=== PATIENT | female | born 1945 | race Caucasian/White ===

== ENCOUNTER 2018-12-31 11:56 | Emergency (ER) | payer OTHER ==
[~2018-12-31] VITALS: Ht 160 cm; Wt 57.2 kg
[2018-12-31 13:03] LABS: Basophils # (auto) 0 uL; Basophils % (auto) 0.3 % (0.0-2.0); Eosinophils # (auto) 0 uL; Eosinophils % (auto) 0.3 % (0.0-7.0); Hematocrit 42.9 % (36.0-46.0); Hemoglobin 14.3 g/dL (12.2-16.2); Lymphocytes # (auto) 1.1 uL; Lymphocytes % (auto) 13.5 % (10.0-50.0); Mean Corpuscular Hemoglobin 28.2 pg (28.0-32.0); Mean Corpuscular Hgb Conc. 33.4 g/dL (32.0-36.0); Mean Corpuscular Volume 84.4 fL (80.0-100.0); Monocytes # (auto) 0.4 uL; Monocytes % (auto) 4.4 % (0.0-12.0); Neutrophils # (auto) 6.7 uL; Neutrophils % (auto) 81.5 % (37.0-80.0); Nucleated Red Blood Cells % 0.1 %; Platelet Count (auto) 194 10^3/uL (140-450); Red Blood Cells 5.08 10^6/uL (4.0-5.20); White Blood Cell 8.2 10^3/uL (4.4-10.8)
[2018-12-31 13:28] LABS: Albumin 3.7 g/dL (3.4-5.0); Anion Gap 7 (5-15); Blood Urea Nitrogen 21 mg/dL (7-18); Calcium 8.9 mg/dL (8.5-10.1); Carbon Dioxide 24 mmol/L (21-32); Chloride 110 mmol/L (98-107); Glucose 103 mg/dL (74-106); Potassium 3.7 mmol/L (3.5-5.1); Sodium 141 mmol/L (136-145)
[2018-12-31 13:35] LABS: Alanine Aminotransferase 13 U/L (13-56); Alkaline Phosphatase 69 U/L (45-117); Aspartate Aminotransferase 15 U/L (15-37); BUN/Creatinine Ratio 25.6; Bilirubin, Total 0.6 mg/dL (0.2-1.0); GFR African American 87 mL/min; GFR Non-African American 72 mL/min; Total Protein 7.4 g/dL (6.4-8.2)
[2018-12-31] MEDS ORDERED: cloNIDine HCL 0.1 MG TAB PO ONE (16:15)
[2018-12-31 18:00] VITALS: BP 158/84
== END 2018-12-31 15:50 | disposition home or self-care (01) ==
LOC: ER 11:56
DX: I16.0 Hypertensive urgency (principal); K21.9 Gastro-esophageal reflux disease without esophagitis; Z90.710 Acquired absence of both cervix and uterus
CPT/HCPCS: 36415; 71046; 80053; 84484; 85025

== ENCOUNTER → 2019-01-08 | Outpatient (CLI) | payer OTHER ==
[2019-01-08 11:59] LABS: Basophils # (auto) 0.1 uL; Basophils % (auto) 0.8 % (0.0-2.0); Eosinophils # (auto) 0.1 uL; Eosinophils % (auto) 1.2 % (0.0-7.0); Hematocrit 41.6 % (36.0-46.0); Lymphocytes # (auto) 1.9 uL; Lymphocytes % (auto) 26.3 % (10.0-50.0); Mean Corpuscular Hemoglobin 28.3 pg (28.0-32.0); Mean Corpuscular Hgb Conc. 33.6 g/dL (32.0-36.0); Mean Corpuscular Volume 84.1 fL (80.0-100.0); Monocytes # (auto) 0.4 uL; Monocytes % (auto) 5.8 % (0.0-12.0); Neutrophils # (auto) 4.8 uL; Neutrophils % (auto) 65.9 % (37.0-80.0); Nucleated Red Blood Cells % 0.1 %; Platelet Count (auto) 205 10^3/uL (140-450); Red Blood Cells 4.95 10^6/uL (4.0-5.20); White Blood Cell 7.2 10^3/uL (4.4-10.8)
[2019-01-08 12:05] LABS: Urine Bacteria NONE SEEN /hpf (None Seen); Urine Blood Negative /uL (Negative); Urine Mucus FEW (None Seen); Urine Specific Gravity 1.016 (1.001-1.035); Urine WBC 2 /hpf (0 - 5)
[2019-01-08 12:34] LABS: Albumin 3.4 g/dL (3.4-5.0); Calcium 9.2 mg/dL (8.5-10.1); Potassium 4.1 mmol/L (3.5-5.1)
[2019-01-08 12:42] LABS: Bilirubin, Total 0.5 mg/dL (0.2-1.0); Folate (Folic Acid) 9.91 ng/mL (5.38-24); Total Protein 7.4 g/dL (6.4-8.2)
== END | disposition home or self-care (01) ==
LOC: LAB 11:17
PROVIDERS: ATTEND Nurse Practitioner
DX: E78.5 Hyperlipidemia, unspecified (principal); I10 Essential (primary) hypertension; K21.9 Gastro-esophageal reflux disease without esophagitis
CPT/HCPCS: 36415; 80053; 80061; 81001; 82306; 82607; 82746; 83036; 84443; 85025

== ENCOUNTER → 2019-01-22 | Outpatient (CLI) | payer OTHER | END | disposition home or self-care (01) | LOC: LAB 15:43 | PROVIDERS: ATTEND Internal Medicine | DX: R63.4 Abnormal weight loss (principal); I10 Essential (primary) hypertension; K21.9 Gastro-esophageal reflux disease without esophagitis | CPT/HCPCS: 82105; 82274; 82378; 86301; 86304 ==

== ENCOUNTER → 2019-01-30 | Outpatient (CLI) | payer OTHER ==
[2019-01-30 11:28] LABS: Calcium 9.2 mg/dL (8.5-10.1); Potassium 3.7 mmol/L (3.5-5.1)
[2019-01-30 11:35] LABS: Albumin 3.6 g/dL (3.4-5.0); BUN/Creatinine Ratio 22.1; Bilirubin, Total 0.5 mg/dL (0.2-1.0)
== END | disposition home or self-care (01) ==
LOC: LAB 09:17
PROVIDERS: ATTEND Internal Medicine
DX: I10 Essential (primary) hypertension (principal)
CPT/HCPCS: 36415; 80053

== ENCOUNTER → 2019-02-11 | Outpatient (CLI) | payer OTHER | END | disposition home or self-care (01) | LOC: Rad HDHVI 13:02 | PROVIDERS: ATTEND Internal Medicine Cardiovascular Disease | DX: I08.3 Combined rheumatic disorders of mitral, aortic and tricuspid valves (principal); R00.2 Palpitations; I10 Essential (primary) hypertension | CPT/HCPCS: 93306 ==

== ENCOUNTER → 2019-02-14 | Outpatient (CLI) | payer OTHER ==
[~2019-02-14] VITALS: Ht 160 cm; Wt 55.8 kg
== END | disposition home or self-care (01) ==
LOC: Rad HDHVI 13:02
PROVIDERS: ATTEND Internal Medicine Cardiovascular Disease
DX: I10 Essential (primary) hypertension (principal)
CPT/HCPCS: 78452; 93017; 96374; A9500

== ENCOUNTER → 2020-01-31 | Outpatient (CLI) | payer OTHER ==
[2020-01-31 11:45] LABS: Basophils # (auto) 0 10 ^3/uL (0-0.2); Basophils % (auto) 0.6 % (0.0-2.0); Eosinophils # (auto) 0.1 10 ^3/uL (0-0.8); Eosinophils % (auto) 1.7 % (0.0-7.0); Hematocrit 38.4 % (36.0-46.0); Hemoglobin 12.6 g/dL (12.2-16.2); Lymphocytes # (auto) 1.9 10 ^3/uL (0.4-5.4); Lymphocytes % (auto) 24.5 % (10.0-50.0); Mean Corpuscular Hemoglobin 28.1 pg (28.0-32.0); Mean Corpuscular Hgb Conc. 32.7 g/dL (32.0-36.0); Mean Corpuscular Volume 85.8 fL (80.0-100.0); Monocytes # (auto) 0.7 10 ^3/uL (0-1.3); Neutrophils # (auto) 4.8 10 ^3/uL (1.6-8.6); Neutrophils % (auto) 64.2 % (37.0-80.0); Nucleated Red Blood Cells % 0.1 %; Platelet Count (auto) 208 10^3/uL (140-450); Red Blood Cells 4.48 10^6/uL (4.0-5.20); Red Cell Distribution Width 14.2 % (11.8-14.3); White Blood Cell 7.6 10^3/uL (4.4-10.8)
[2020-01-31 12:26] LABS: Albumin 3.5 g/dL (3.4-5.0); Calcium 9.2 mg/dL (8.5-10.1); Potassium 3.6 mmol/L (3.5-5.1)
[2020-01-31 12:32] LABS: Bilirubin, Total 0.5 mg/dL (0.2-1.0); Total Protein 7.2 g/dL (6.4-8.2)
== END | disposition home or self-care (01) ==
LOC: LAB 11:26
PROVIDERS: ATTEND Internal Medicine
DX: I10 Essential (primary) hypertension (principal)
CPT/HCPCS: 36415; 80053; 80061; 83036; 85025

== ENCOUNTER 2020-03-03 16:16 | Inpatient (IN) | payer OTHER ==
[~2020-03-03] VITALS: Ht 160 cm; Wt 64.7 kg
[2020-03-03 17:00] VITALS: BP 171/88
--- NOTE | 2020-03-03 17:00 | NUR ---
Direct Admit Note GABRIELADELFO admitted to Telemetry/MS unit as a direct admit per MD order. Patient oriented to Rosa major RN, unit, room, bed, and unit policies regarding patient care and visiting hours. Patient weighed by bedscale and encouraged to call if they need something. All questions and concerns addressed, patient verbalized understanding. MD notified of patients arrival, awaiting inpatient orders.
[2020-03-03 17:23] VITALS: BP 171/88
[2020-03-03] MEDS ORDERED: HYDROcodone-ACET 5/325MG TAB PO PRN (17:45)
[2020-03-03] MEDS ORDERED: ACETAMINOPHEN 325 MG TAB PO PRN (17:45)
[2020-03-03] MEDS ORDERED: MORPHINE SULF INJ 2 MG/ML SYRINGE 1ML IV PRN ×2 (17:45)
[2020-03-03] MEDS ORDERED: NITROGLYCERIN 0.4 MG SL TAB SL PRN (17:45)
[2020-03-03] MEDS ORDERED: ONDANSETRON HCL 4 MG/2 ML VIAL IV PRN (17:45)
[2020-03-03] MEDS ORDERED: ALUM & MAG HYDROX-SIMETH LIQ(MAALOX) 30 ML PO PRN (17:45)
[2020-03-03] MEDS: SODIUM CHLORIDE 0.9% 1,000 ML IV SCH (17:53)
[2020-03-03] MEDS ORDERED: hydrALAZINE HCL 20 MG/ML VL IV PRN (18:00)
[2020-03-03] MEDS ORDERED: ENALAPRILAT 1.25 MG/ML-1ML VIAL IV PRN (18:00)
[2020-03-03] MEDS: METOPROLOL TARTRATE 1MG/1ML-5ML VIAL IV SCH ×2 (18:11→23:45)
[2020-03-03 19:46] LABS: Basophils # (auto) 0 10 ^3/uL (0-0.2); Basophils % (auto) 0.1 % (0.0-2.0); Eosinophils # (auto) 0 10 ^3/uL (0-0.8); Hematocrit 39.1 % (36.0-46.0); Hemoglobin 13.1 g/dL (12.2-16.2); Mean Corpuscular Hemoglobin 28.3 pg (28.0-32.0); Mean Corpuscular Hgb Conc. 33.4 g/dL (32.0-36.0); Mean Corpuscular Volume 84.7 fL (80.0-100.0); Monocytes # (auto) 0.6 10 ^3/uL (0-1.3); Monocytes % (auto) 4.3 % (0.0-12.0); Neutrophils % (auto) 88.6 % (37.0-80.0); Nucleated Red Blood Cells % 0.1 %; Platelet Count (auto) 242 10^3/uL (140-450); Red Blood Cells 4.61 10^6/uL (4.0-5.20); Red Cell Distribution Width 14.3 % (11.8-14.3); White Blood Cell 13.5 10^3/uL (4.4-10.8)
[2020-03-03 20:03] LABS: Albumin 3.9 g/dL (3.4-5.0); Calcium 10.5 mg/dL (8.5-10.1); Magnesium 2.4 mg/dL (1.6-2.6)
[2020-03-03 20:08] LABS: BUN/Creatinine Ratio 30.7; Bilirubin, Total 0.6 mg/dL (0.2-1.0); Total Protein 7.4 g/dL (6.4-8.2)
[2020-03-03 20:13] LABS: Potassium 2.8 mmol/L (3.5-5.1)
--- NOTE | 2020-03-03 20:18 | NUR ---
Critical potassium value of 2.8 received. Paged hospitalist. Awaiting call back.
--- NOTE | 2020-03-03 20:35 | NUR ---
Opening Shift Note Assumed care of patient, awake and alert. No S/S of distress/SOB, denied chest pain. Collected UA and sent to lab. Instructed on POC and to call for assist PRN, will continue to monitor for changes Q1hr and PRN.
[2020-03-03 20:39] LABS: INR 0.97 (0.9-1.15); Partial Thromboplastin Time 21.6 sec (23.0-31.2)
[2020-03-03 22:00] VITALS: BP 144/77
[2020-03-03] MEDS ORDERED: POTASSIUM CHL 20 Meq TABLET PO ONE (22:00)
[2020-03-03 22:30] LABS: Urine Bacteria NONE SEEN /hpf (None Seen); Urine Blood Negative /uL (Negative); Urine Hyaline Cast FEW /lpf (0 - 2); Urine Mucus FEW (None Seen); Urine Specific Gravity 1.019 (1.001-1.035); Urine WBC 1 /hpf (0 - 5)
[2020-03-03 22:38] LABS: Creatinine, Urine 142 mg/dL (30.0-125.0); Sodium Urine 33 mmol/L (40-220)
[2020-03-03] MEDS: PANTOPRAZOLE 40 MG/10 ML VIAL INJ IV SCH (23:45)
[2020-03-04 05:00] VITALS: BP 103/60
[2020-03-04 06:18] LABS: Basophils # (auto) 0 10 ^3/uL (0-0.2); Basophils % (auto) 0.3 % (0.0-2.0); Eosinophils # (auto) 0.1 10 ^3/uL (0-0.8); Eosinophils % (auto) 0.5 % (0.0-7.0); Hematocrit 35.4 % (36.0-46.0); Lymphocytes # (auto) 1.8 10 ^3/uL (0.4-5.4); Lymphocytes % (auto) 14.8 % (10.0-50.0); Mean Corpuscular Hemoglobin 28.6 pg (28.0-32.0); Mean Corpuscular Hgb Conc. 33.8 g/dL (32.0-36.0); Mean Corpuscular Volume 84.5 fL (80.0-100.0); Monocytes # (auto) 0.9 10 ^3/uL (0-1.3); Monocytes % (auto) 7.6 % (0.0-12.0); Neutrophils # (auto) 9.2 10 ^3/uL (1.6-8.6); Neutrophils % (auto) 76.8 % (37.0-80.0); Platelet Count (auto) 216 10^3/uL (140-450); Red Blood Cells 4.18 10^6/uL (4.0-5.20); Red Cell Distribution Width 14.4 % (11.8-14.3)
[2020-03-04 06:22] LABS: Potassium 3.7 mmol/L (3.5-5.1)
[2020-03-04 06:27] LABS: BUN/Creatinine Ratio 27.5; Calcium 9.4 mg/dL (8.5-10.1)
--- NOTE | 2020-03-04 06:57 | NUR ---
PT STATED SHE REFUSES TO HAVE A BLOOD TRANSFUSION DURING HER SCHEDULED PROCEDURE. STATED SHE IS A SABIANIST. WILL ENDORSE TO DAY NURSE.
[2020-03-04] MEDS: METOPROLOL TARTRATE 1MG/1ML-5ML VIAL IV SCH ×4 (07:02→22:58)
[2020-03-04] MEDS: SODIUM CHLORIDE 0.9% 1,000 ML IV SCH ×3 (07:05→21:07)
--- NOTE | 2020-03-04 07:20 | NUR ---
Assumed care Assumed care of patient AOx4 in bed. Patient expressed anxiety do to pending procedure. Patient denies pain at this time. No s/s of distress noted. Patient updated on POC and additional education regarding pending EGD given. This seemed to have ease some of patient's anxiety. Bed in lowest, locked position, call light within reach, will continue care.
[2020-03-04] MEDS ORDERED: FLUMAZENIL 0.1 MG/ML INJ 10ML MDV IV ONE (08:15)
[2020-03-04] MEDS ORDERED: SODIUM CHLORIDE LOCK 10 ML ONE (08:15)
[2020-03-04] MEDS ORDERED: NALOXONE HCL 0.4 MG/ML VIAL ONE (08:15)
[2020-03-04] MEDS ORDERED: diphenhdrAMINE HCL 50 MG/1 ML VL ONE (08:16)
[2020-03-04 09:00] VITALS: BP 99/58
[2020-03-04] MEDS: MIDAZOLAM HCL 5 MG/ML-1ML VIAL ONE ×3 (09:22→09:29)
[2020-03-04] MEDS: fentaNYL CITRATE 100 MCG/2 ML VL ONE ×2 (09:22→09:25)
[2020-03-04] MEDS ORDERED: LIDOCAINE VISCOUS 2% 15ML UD ONE (09:58)
[2020-03-04] MEDS: PANTOPRAZOLE 40 MG/10 ML VIAL INJ IV SCH ×2 (10:00→23:04)
[2020-03-04] MEDS ORDERED: AMOXICILLIN TRIHYDRATE 250 MG CAP PO ONE (10:15)
[2020-03-04 13:00] VITALS: BP 87/53
[2020-03-04] MEDS: NYSTATIN (MOUTH-THROAT) 500,000 UNITS/5 ML SUSP MT SCH ×3 (13:02→23:00)
[2020-03-04] MEDS: AZITHROMYCIN 250 MG TAB PO SCH (13:02)
[2020-03-04] MEDS: SUCRALFATE 1 GM/10 ML ORAL SUSP PO SCH ×3 (13:02→22:59)
--- NOTE | 2020-03-04 13:05 | NUR ---
low BP, paged Dr. Kan paged at this time regarding patient low BP during 1300 VS check was 87/53 with HR of 66. This RN reassessed BP with reading of 87/56 with HR of 64. Head of bed lowered and patient is laying supine at this time. Patient is asymptomatic and states she feels "normal". paged at this time. Awaiting call back.
--- NOTE | 2020-03-04 13:20 | NUR ---
HOLD P.T. BECAUSE OF PATIENT'S LOW BLOOD PRESSURE. ATTEMPT P.T. TOMORROW.
[2020-03-04] MEDS ORDERED: SODIUM CHLORIDE 0.9% 1,000 ML IV ONE (13:30)
--- NOTE | 2020-03-04 13:32 | NUR ---
paged back Dr. Kan paged back and informed of patients low BP of 87/53 with HR of 66. New orders received for Bolus of 1L Normal saline to be infused over 1hr. Will implement orders and continue to assess patient.
--- NOTE | 2020-03-04 14:05 | NUR ---
at bedside Dr. Kan at bedside explaining POC to patient. Plan to D/C patient tomorrow. This RN at bedside.
[2020-03-04] MEDS: AMOXICILLIN TRIHYDRATE 250 MG CAP PO SCH ×2 (14:46→22:59)
[2020-03-04 16:37] VITALS: BP 117/66
[2020-03-04] MEDS ORDERED: LISI-707 PO (18:50)
[2020-03-04] MEDS ORDERED: [UNRECOGNIZED DRUG - CODE] PO (19:00)
--- NOTE | 2020-03-04 19:30 | NUR ---
Opening Shift Note Assumed care of patient, awake and alert. No S/S of distress/SOB or pain. Instructed on POC and to call for assist PRN, will continue to monitor for changes Q1hr and PRN.
[2020-03-04 22:00] VITALS: BP 101/60
[2020-03-05 05:00] VITALS: BP 100/55
[2020-03-05] MEDS: METOPROLOL TARTRATE 1MG/1ML-5ML VIAL IV SCH ×4 (06:00→19:56)
[2020-03-05] MEDS: NYSTATIN (MOUTH-THROAT) 500,000 UNITS/5 ML SUSP MT SCH ×4 (06:29→21:44)
[2020-03-05] MEDS: AMOXICILLIN TRIHYDRATE 250 MG CAP PO SCH ×3 (06:29→21:43)
[2020-03-05] MEDS: SODIUM CHLORIDE 0.9% 1,000 ML IV SCH (06:30)
[2020-03-05] MEDS: SUCRALFATE 1 GM/10 ML ORAL SUSP PO SCH ×4 (06:31→21:44)
[2020-03-05 07:32] LABS: Albumin 2.6 g/dL (3.4-5.0); Calcium 7.7 mg/dL (8.5-10.1); Potassium 3.6 mmol/L (3.5-5.1)
[2020-03-05 07:35] LABS: BUN/Creatinine Ratio 23.5; Bilirubin, Total 0.4 mg/dL (0.2-1.0); Total Protein 4.9 g/dL (6.4-8.2)
[2020-03-05 09:00] VITALS: BP 125/68
[2020-03-05] MEDS: PANTOPRAZOLE 40 MG/10 ML VIAL INJ IV SCH ×2 (10:34→21:45)
[2020-03-05] MEDS: AZITHROMYCIN 250 MG TAB PO SCH (10:35)
[2020-03-05] MEDS ORDERED: POTASSIUM CHLORIDE 10 MEQ in SODIUM CHLORIDE 0.9% 1,000 ML IV SCH (12:15)
[2020-03-05 13:00] VITALS: BP 147/78
--- NOTE | 2020-03-05 13:59 | NUR ---
assessment re: dc planning Patient is a 74 year old female who is alert and oriented. Prior to admission patient lived home with her daughter Natasha who is also in the hospital and functioned with assistance. Patient informed me she has a fww, but needs a four wheeled walker to ambulate over carpet in the home. Patients PCP is Dr Kan. Patient has an income of 2,000 per month. Patient informed me she feels weak and needs help in the home. I have offered patient PP caregiver resources and she refused resources. I offered [facility] resource and she accepted. Patient ambulated with PT 75 feet min/mod assist. Patient will need home health for PT on discharge and a four wheel walker. Patient will have transport home. Patient has agreed to have her friend Eben and his come in and help with meals until her daughter comes back home. Patient verbalized understanding and agreed to discharge plan home. Addendum: 03/05/20 at 1408 by Marianna FERREIRA Amended: Links added.
[2020-03-05 16:56] VITALS: BP 153/81
--- NOTE | 2020-03-05 19:50 | NUR ---
Verifications of order: Dr. Currie paged regarding Potassium rider order. Received order to discontinue potassium rider order. Order noted. Care continued.
[2020-03-05 21:58] VITALS: BP 141/81
[2020-03-05 22:05] VITALS: BP 142/74
[2020-03-06] VITALS (7 sets, daily range): BP systolic 137–161; BP diastolic 75–83
[2020-03-06] MEDS: METOPROLOL TARTRATE 1MG/1ML-5ML VIAL IV SCH ×4 (06:00→18:26)
[2020-03-06] MEDS: NYSTATIN (MOUTH-THROAT) 500,000 UNITS/5 ML SUSP MT SCH ×4 (06:19→22:11)
[2020-03-06] MEDS: SUCRALFATE 1 GM/10 ML ORAL SUSP PO SCH ×4 (06:19→22:11)
[2020-03-06] MEDS: AMOXICILLIN TRIHYDRATE 250 MG CAP PO SCH ×3 (06:19→22:12)
[2020-03-06] MEDS: PANTOPRAZOLE 40 MG/10 ML VIAL INJ IV SCH ×2 (10:14→22:11)
[2020-03-06] MEDS: AZITHROMYCIN 250 MG TAB PO SCH (10:14)
--- NOTE | 2020-03-06 12:14 | NUR ---
Laura Crane at bedside. ordered Pureed Diet, patient to stay on Pureed diet for two weeks upon discharge, patient to follow up w/ her as outpatient for GI.
--- NOTE | 2020-03-06 14:00 | NUR ---
Dr. Kan at bedside. MD to discharge the patient tomorrow, will have the prescription be picked up at [facility].
--- NOTE | 2020-03-06 16:53 | NUR ---
re-assessment Per consult home health on dc for rehab and med management. I have sent Jacqueline counseling case manager md order to evaluate to see if patient meets criteria. Addendum: 03/06/20 at 1658 by Marianna Vann Amended: Links added.
[2020-03-07] MEDS: METOPROLOL TARTRATE 1MG/1ML-5ML VIAL IV SCH (00:28)
[2020-03-07] MEDS: METOPROLOL TARTRATE 50 MG TAB PO SCH ×2 (01:20→12:44)
[2020-03-07 05:00] VITALS: BP 124/70
[2020-03-07] MEDS: AMOXICILLIN TRIHYDRATE 250 MG CAP PO SCH ×2 (06:15→14:46)
[2020-03-07] MEDS: SUCRALFATE 1 GM/10 ML ORAL SUSP PO SCH ×2 (06:16→11:58)
[2020-03-07] MEDS: NYSTATIN (MOUTH-THROAT) 500,000 UNITS/5 ML SUSP MT SCH ×2 (06:16→11:58)
[2020-03-07 06:52] LABS: Basophils # (auto) 0 10 ^3/uL (0-0.2); Basophils % (auto) 0.4 % (0.0-2.0); Eosinophils # (auto) 0.2 10 ^3/uL (0-0.8); Eosinophils % (auto) 2.5 % (0.0-7.0); Hematocrit 29.3 % (36.0-46.0); Lymphocytes # (auto) 1.8 10 ^3/uL (0.4-5.4); Lymphocytes % (auto) 20.5 % (10.0-50.0); Mean Corpuscular Hemoglobin 29.1 pg (28.0-32.0); Mean Corpuscular Hgb Conc. 34.1 g/dL (32.0-36.0); Mean Corpuscular Volume 85.1 fL (80.0-100.0); Monocytes # (auto) 0.6 10 ^3/uL (0-1.3); Monocytes % (auto) 7.5 % (0.0-12.0); Neutrophils % (auto) 69.1 % (37.0-80.0); Platelet Count (auto) 151 10^3/uL (140-450); Red Blood Cells 3.44 10^6/uL (4.0-5.20); Red Cell Distribution Width 14.8 % (11.8-14.3); White Blood Cell 8.7 10^3/uL (4.4-10.8)
[2020-03-07 06:58] LABS: Albumin 2.7 g/dL (3.4-5.0); Magnesium 2.4 mg/dL (1.6-2.6); Potassium 3.3 mmol/L (3.5-5.1)
[2020-03-07 07:02] LABS: BUN/Creatinine Ratio 12.3; Bilirubin, Total 0.5 mg/dL (0.2-1.0)
--- NOTE | 2020-03-07 07:40 | NUR ---
Opening Shift Note: Assumed care of patient, awake and alert. No S/S of distress/SOB or pain. Bed in lowest locked position, side rails up x 2, call light within reach. Patient instructed on POC and to call for assist PRN, will continue to monitor for changes Q1hr and PRN.
[2020-03-07] MEDS ORDERED: POTASSIUM CHL 20MEQ/100ML 100 ML IV ONE (08:30)
[2020-03-07] MEDS ORDERED: POTASSIUM EFFERVESENT TAB 25 MEQ PO ONE (08:30)
[2020-03-07 08:38] VITALS: BP 127/74
[2020-03-07] MEDS: PANTOPRAZOLE 40 MG/10 ML VIAL INJ IV SCH (09:13)
--- NOTE | 2020-03-07 09:15 | NUR ---
IV insertion: IV access obtained, via clean sterile technique by inserting 20 gauge catheter at right wrist after 1 attempt. IV secured properly. No trauma to site. Patient tolerated well.
[2020-03-07] MEDS: AZITHROMYCIN 250 MG TAB PO SCH (09:17)
[2020-03-07] MEDS ORDERED: amLODIPine BESYLATE 5 MG TAB PO SCH (10:00)
[2020-03-07 10:57] LABS: Hematocrit 34.7 % (36.0-46.0); Hemoglobin 11.7 g/dL (12.2-16.2)
[2020-03-07 12:29] VITALS: BP 134/71
--- NOTE | 2020-03-07 12:51 | NUR ---
Nutrition Assessment Est energy needs 8627-3134 kcal (25-30 kcal/kg BW 64.7kg) est protein needs 52-65g (0.8-1g/kg BW 64.7kg) Will reassess prn. Addendum: 03/07/20 at [address] Amended: Links added.
[2020-03-07 15:17] VITALS: BP 123/72
== END 2020-03-07 16:25 | disposition home or self-care (01) | DRG 380 ==
LOC: WEST WING 16:16
PROVIDERS: ADMIT Internal Medicine; ATTEND Internal Medicine
PROC: 0DB88ZX Excision of Small Intestine, Via Natural or Artificial Opening Endoscopic, Diagnostic (ICD-10-PCS; 2020-03-04)
PROC: 0DB68ZX Excision of Stomach, Via Natural or Artificial Opening Endoscopic, Diagnostic (ICD-10-PCS; 2020-03-04)
PROC: 0DB38ZX Excision of Lower Esophagus, Via Natural or Artificial Opening Endoscopic, Diagnostic (ICD-10-PCS; principal; 2020-03-04 09:15)
DX: K22.10 Ulcer of esophagus without bleeding (principal); N17.0 Acute kidney failure with tubular necrosis; E87.1 Hypo-osmolality and hyponatremia; E87.3 Alkalosis; K31.1 Adult hypertrophic pyloric stenosis; K27.9 Peptic ulcer, site unspecified, unspecified as acute or chronic, without hemorrhage or perforation; K29.70 Gastritis, unspecified, without bleeding; N18.30 Chronic kidney disease, stage 3 unspecified; E86.0 Dehydration; E87.6 Hypokalemia; K31.3 Pylorospasm, not elsewhere classified; K44.9 Diaphragmatic hernia without obstruction or gangrene; F41.9 Anxiety disorder, unspecified; K21.9 Gastro-esophageal reflux disease without esophagitis; B96.81 Helicobacter pylori [H. pylori] as the cause of diseases classified elsewhere; E11.22 Type 2 diabetes mellitus with diabetic chronic kidney disease; I12.9 Hypertensive chronic kidney disease with stage 1 through stage 4 chronic kidney disease, or unspecified chronic kidney disease; Z82.49 Family history of ischemic heart disease and other diseases of the circulatory system; Z83.3 Family history of diabetes mellitus; Z87.11 Personal history of peptic ulcer disease; Z90.710 Acquired absence of both cervix and uterus
CPT/HCPCS: 36415; 71045; 76775; 80048; 80053; 81001; 82306; 82570; 83735; 83970; 84100; 84300; 85014; 85018; 85025; 85610; 85730; 93005; 97116; 97163; 97530; C9113; G0378; J2250; J2405; J3480

== ENCOUNTER → 2020-07-20 | Outpatient (CLI) | payer OTHER ==
[~2020-07-20] MED LIST: LISI-707 PO; [UNRECOGNIZED DRUG - CODE] PO
[2020-07-20 12:29] LABS: Albumin 3.7 g/dL (3.4-5.0); Calcium 8.9 mg/dL (8.5-10.1); Potassium 3.9 mmol/L (3.5-5.1)
[2020-07-20 12:32] LABS: BUN/Creatinine Ratio 27.8; Bilirubin, Total 0.3 mg/dL (0.2-1.0); Total Protein 7.1 g/dL (6.4-8.2)
== END | disposition home or self-care (01) ==
LOC: LAB 11:23
PROVIDERS: ATTEND Internal Medicine
DX: A04.8 Other specified bacterial intestinal infections (principal); I27.9 Pulmonary heart disease, unspecified
CPT/HCPCS: 36415; 80053; 83036; 84443

== ENCOUNTER → 2022-12-13 | Outpatient (CLI) | payer OTHER ==
[2022-12-13 12:40] LABS: Basophils # (auto) 0 10 ^3/uL (0-0.2); Basophils % (auto) 0.5 % (0.0-2.0); Eosinophils # (auto) 0.1 10 ^3/uL (0-0.8); Eosinophils % (auto) 0.9 % (0.0-7.0); Hematocrit 40.4 % (36.0-46.0); Hemoglobin 13.4 g/dL (12.2-16.2); Lymphocytes # (auto) 1.5 10 ^3/uL (0.4-5.4); Lymphocytes % (auto) 20.9 % (10.0-50.0); Mean Corpuscular Hemoglobin 28.4 pg (28.0-32.0); Mean Corpuscular Hgb Conc. 33.1 g/dL (32.0-36.0); Mean Corpuscular Volume 85.5 fL (80.0-100.0); Monocytes # (auto) 0.4 10 ^3/uL (0-1.3); Monocytes % (auto) 5.3 % (0.0-12.0); Neutrophils # (auto) 5.2 10 ^3/uL (1.6-8.6); Neutrophils % (auto) 72.4 % (37.0-80.0); Nucleated Red Blood Cells % 0.1 %; Red Blood Cells 4.72 10^6/uL (4.0-5.20); Red Cell Distribution Width 15.3 % (11.8-14.3); White Blood Cell 7.2 10^3/uL (4.4-10.8)
[2022-12-13 12:54] LABS: Urine Bacteria NONE SEEN /hpf (None Seen); Urine Blood Negative /uL (Negative); Urine Specific Gravity 1.017 (1.001-1.035); Urine WBC 1 /hpf (0 - 5)
[2022-12-13 13:06] LABS: Albumin 3.8 g/dL (3.4-5.0); Potassium 4.2 mmol/L (3.5-5.1)
[2022-12-13 13:12] LABS: BUN/Creatinine Ratio 20.7 (10.0-20.0); Bilirubin, Total 0.4 mg/dL (0.2-1.0); Total Protein 7.3 g/dL (6.4-8.2)
[2022-12-13 13:59] LABS: Free T4 (Free Thyroxine) 0.84 ng/dL (0.89-1.76)
== END | disposition home or self-care (01) ==
LOC: LAB 11:59
PROVIDERS: ATTEND Internal Medicine
DX: I12.9 Hypertensive chronic kidney disease with stage 1 through stage 4 chronic kidney disease, or unspecified chronic kidney disease (principal); N18.9 Chronic kidney disease, unspecified; R73.03 Prediabetes; R00.2 Palpitations
CPT/HCPCS: 36415; 80053; 80061; 81001; 82274; 82306; 82607; 83036; 84439; 84443; 85025

== ENCOUNTER → 2024-03-12 | Outpatient (CLI) | payer OTHER ==
[2024-03-12 10:15] LABS: Urine Bacteria None Seen /hpf (None Seen)
[2024-03-12 10:21] LABS: Basophils # (auto) 0 10 ^3/uL (0-0.2); Basophils % (auto) 0.5 % (0.0-2.0); Eosinophils # (auto) 0.1 10 ^3/uL (0-0.8); Eosinophils % (auto) 1.7 % (0.0-7.0); Hematocrit 40.8 % (36.0-46.0); Hemoglobin 13.4 g/dL (12.2-16.2); Lymphocytes # (auto) 1.9 10 ^3/uL (0.4-5.4); Mean Corpuscular Hemoglobin 27.8 pg (28.0-32.0); Mean Corpuscular Hgb Conc. 32.9 g/dL (32.0-36.0); Mean Corpuscular Volume 84.6 fL (80.0-100.0); Monocytes # (auto) 0.5 10 ^3/uL (0-1.3); Monocytes % (auto) 5.7 % (0.0-12.0); Neutrophils # (auto) 5.8 10 ^3/uL (1.6-8.6); Neutrophils % (auto) 69.1 % (37.0-80.0); Platelet Count (auto) 244 10^3/uL (140-450); Red Blood Cells 4.82 10^6/uL (4.0-5.20); Red Cell Distribution Width 15.8 % (11.8-14.3); White Blood Cell 8.3 10^3/uL (4.4-10.8)
[2024-03-12 10:31] LABS: Urine Blood Negative /uL (Negative); Urine Clarity Clear (Clear); Urine Color Light-Yellow (Yellow); Urine Protein, UAD Negative (Negative); Urine Urobilinogen Normal (Negative); Urine WBC 1 /hpf (0 - 5)
[2024-03-12 11:19] LABS: Alanine Aminotransferase 10 U/L (7-40); Albumin 4.4 g/dL (3.2-4.8); Alkaline Phosphatase 83 U/L (46-116); Anion Gap 5 (5-15); Aspartate Aminotransferase 13 U/L (13-40); BUN/Creatinine Ratio 21.3 (10.0-20.0); Blood Urea Nitrogen 26 mg/dL (9-23); Calcium 9.7 mg/dL (8.7-10.4); Carbon Dioxide 27 mmol/L (20-31); Chloride 108 mmol/L (98-107); Glucose 106 mg/dL (74-106); Potassium 4.2 mmol/L (3.5-5.1); Sodium 140 mmol/L (136-145)
[2024-03-12 11:20] LABS: Bilirubin, Total 0.4 mg/dL (0.2-1.0); Total Protein 7.1 g/dL (5.7-8.2)
== END | disposition home or self-care (01) ==
LOC: LAB 10:03
PROVIDERS: ATTEND Internal Medicine
DX: R73.9 Hyperglycemia, unspecified (principal)
CPT/HCPCS: 36415; 80053; 81001; 82274; 82306; 82607; 85025

== ENCOUNTER 2025-02-03 10:33 | Outpatient (CLI) | payer OTHER ==
[2025-02-03 11:50] LABS: Hematocrit 41.8 % (36.0-46.0); Hemoglobin 13.9 g/dL (12.2-16.2); Mean Corpuscular Hemoglobin 28.2 pg (28.0-32.0); Mean Corpuscular Volume 84.8 fL (80.0-100.0); Nucleated Red Blood Cells % 0.0 %
[2025-02-03 12:03] LABS: Urine Protein, UAD Negative (Negative)
[2025-02-03 12:23] LABS: Alanine Aminotransferase 11 U/L (7-40); Albumin 4.7 g/dL (3.2-4.8); Alkaline Phosphatase 88 U/L (46-116); Anion Gap 11 (5-15); BUN/Creatinine Ratio 15.2 (10.0-20.0); Blood Urea Nitrogen 19 mg/dL (9-23); Calcium 9.4 mg/dL (8.7-10.4); Carbon Dioxide 27 mmol/L (20-31); Chloride 105 mmol/L (98-107); Potassium 3.8 mmol/L (3.5-5.1); Sodium 143 mmol/L (136-145); Total Protein 7.6 g/dL (5.7-8.2); Triglycerides 66 mg/dL (< 150)
[2025-02-03 12:24] LABS: Bilirubin, Total 0.5 mg/dL (0.2-1.0)
[2025-02-03 12:25] LABS: Cholesterol 220 mg/dL (< 200); Glucose 112 mg/dL (74-106); HDL Cholesterol 61 mg/dL (40-59)
== END 2025-02-03 17:00 | disposition home or self-care (01) ==
LOC: LAB 10:33
PROVIDERS: ATTEND Internal Medicine
DX: E11.65 Type 2 diabetes mellitus with hyperglycemia (principal)
CPT/HCPCS: 36415; 80053; 80061; 81003; 83036; 84443; 85025